=== PATIENT | female | born 1955 | race Caucasian/White ===

== ENCOUNTER 2019-12-30 09:30 | Inpatient (IN) ==
--- NOTE | 2019-12-29 11:14 | Anesthesiology Consultation ---
Date of Service December 29, 2019 Assessment & Plan (1) Encounter for pre-operative examination: Chart Review Chart Review: Acceptable Risk for Surgery and Patient NOT seen in Pre Admission Testing History Surgery Operation Date: 12/30/19 11:30 Proposed Procedures p Navigational Bronchoscopy with ICG Markings; - Francisco Lim MD, FACS s Robotic Right Video-Assisted Thoracoscopy with Right Upper Lobe Wedge Resection, Possible Right Upper Lobectomy, with Mediastinal Lymphadenectomy - Francisco Lim MD, FACS Height/Weight Height: 5 ft 2 in Weight: 51.71 kg Allergies Allergy/AdvReac Type Severity Reaction Status Date / Time azithromycin [From Zithromax] Allergy Unknown Hives Verified 12/21/19 14:11 cephalexin [From Keflex] Allergy Unknown DIARHEA Verified 12/21/19 14:11 penicillin G Allergy Unknown UNKN Verified 12/21/19 14:11 Sulfa (Sulfonamide Allergy Unknown UNKN Verified 12/21/19 14:11 Antibiotics) Medications Home Medications Medication Instructions Recorded Confirmed Last Taken cholecalciferol (vitamin D3) 50 2,000 units PO QDD 12/09/19 12/21/19 Unknown mcg (2,000 unit) tablet cyclobenzaprine 10 mg tablet 10 mg PO TID 12/09/19 12/21/19 Unknown diazepam 10 mg tablet 10 mg PO TID PRN 12/09/19 12/21/19 Unknown dicyclomine 10 mg capsule 10 mg PO BID 12/09/19 12/21/19 Unknown diphenoxylate-atropine 2.5 1 tab PO Q6H PRN 12/09/19 12/21/19 Unknown mg-0.025 mg tablet fluticasone propionate 50 1 sprays INTNAS DAILY PRN 12/09/19 12/21/19 Unknown mcg/actuation nasal spray,suspension hydrocodone 5 mg-acetaminophen 325 1 tab PO Q6H PRN 12/09/19 12/21/19 Unknown mg tablet multivitamin 1 tab PO QDD 12/09/19 12/21/19 Unknown pantoprazole 40 mg tablet,delayed 40 mg PO QDD 12/09/19 12/21/19 Unknown release sertraline 100 mg tablet 50 mg PO BID 12/09/19 12/21/19 Unknown topiramate 50 mg tablet 50 mg PO BID 12/09/19 12/21/19 Unknown hydrocodone-acetaminophen 1 tab PO BID PRN 12/21/19 12/21/19 Unknown Past Medical History Medical History Anxiety Chronic back pain GETS [facility] INJECTIONS - LAST INJECTION - WILL BE 12/25/2019- [facility] Depression Diverticulitis History of anemia Irritable bowel Lung cancer Past Family History Family History Mother Heart failure Diabetes Daughter Diabetes Past Surgical History Surgical History H/O: hysterectomy 1977 Hx of cardiac cath 3-4 YR AGO [facility]Per [facility], no cardiac cath done there. Hx of colonoscopy Hx of oral surgery JAW WIRING D/T FACIAL TRAUMA Social History Smoking Status: Current every day smoker Smoking cigarettes per day: 10-20 Do You Dip or Chew Tobacco: No Hx Alcohol Use: Yes Alcohol type: wine and hard liquor alcohol intake frequency: holidays/special occasions only Hx Substance Use: No Testing Laboratory Results 11/11/19 WBC: 9.5 H/H: 15.2/37.6 PLATELETS: 222 PT: 13.3 INR: 1.0 Electrocardiogram Date: 09/07/19 Findings: + NSR @ (77bpm) Other Testing Chest CT 12/22/19 IMPRESSION: 1. 1.8 x 1.5 x 1 cm irregular right upper lobe nodule, minimally increased in size since CT of September 08, 2019. This is highly suggestive of bronchogenic carcinoma. 2. No thoracic lymphadenopathy. 3. Mild emphysema. 4. Moderate coronary artery calcification.
[~2019-12-30 09:30] MED LIST: LR 15ML/HR IV SCH
[2019-12-30] MEDS ORDERED: MIDAZOLAM HCL 1 MG/ML 2ML VIAL ONE (10:06)
[2019-12-30] MEDS ORDERED: PHENYLEPHRINE HCL 10 MG/ML VIAL ONE (10:06)
[2019-12-30] MEDS ORDERED: SUCCINYLCHOLINE CHLORIDE 20 MG/ML 10 ML VIAL ONE (10:06)
[2019-12-30] MEDS ORDERED: NEOSTIGMINE METHYLSULFATE 5 MG/5 ML SYR ONE (10:06)
[2019-12-30] MEDS ORDERED: DEXAMETHASONE SOD INJ 4 MG/ML VIAL ONE (10:06)
[2019-12-30] MEDS ORDERED: ePHEDrine sulfate 50 MG/ML AMP ONE (10:06)
[2019-12-30] MEDS ORDERED: GLYCOPYRROLATE 0.2 MG/ML VIAL ONE (10:06)
[2019-12-30] MEDS ORDERED: PROPOFOL IV EMULSION 10 MG/ML 20 ML VIAL IV ONE ×2 (10:06→14:28)
[2019-12-30] MEDS ORDERED: fentaNYL citrate 100 MCG/2 ML VIAL ONE (10:06)
[2019-12-30] MEDS ORDERED: LIDOCAINE HCL 2% 2 ML VIAL/AMP(20MG/ML) INFIL ONE (10:06)
[2019-12-30] MEDS ORDERED: ONDANSETRON INJ 2 MG/ML 2 ML VIAL ONE (10:06)
--- NOTE | 2019-12-30 10:39 | History & Physical Bridge Note ---
Date of Service December 30, 2019 History & Physical Bridge Note I have examined the patient, reviewed the History & Physical and in the interval since the performance of the History & Physical I have noted the following changes of clinical significance: no changes noted
[2019-12-30] MEDS ORDERED: BUPIVACAINE LIPOSOME 1.3% 266 MG/20 ML VIAL ONE ×2 (10:51)
[2019-12-30] MEDS ORDERED: SODIUM CHLORIDE 0.9% PF 50 ML VIAL ONE (10:51)
[2019-12-30] MEDS ORDERED: BUPIVACAINE 0.5 % 5 MG/1 ML MPF 30ML VIAL ONE (10:51)
[2019-12-30 10:52] LABS: Calcium 9.2 mg/dl (8.5-10.1); Creatinine Clr Calc Pharmacy 37.6 ml/min; Est GFR (Non-African American) 48.4; Potassium 3.8 mmol/L (3.5-5.1)
[2019-12-30] MEDS ORDERED: MEPERIDINE HCL 25 MG/ML CARP IV PRN (10:58)
[2019-12-30] MEDS ORDERED: ATROPINE SULFATE 0.1 MG/ML 10ML SYR IV PRN (10:58)
[2019-12-30] MEDS ORDERED: HYDROmorphone INJ 1 MG/ML SYRINGE IV PRN (10:58)
[2019-12-30] MEDS ORDERED: ePHEDrine sulfate 50 MG/ML AMP IV PRN (10:58)
[2019-12-30] MEDS ORDERED: LABETALOL HCL IV 5 MG/ML 20ML IV PRN (10:58)
[2019-12-30] MEDS ORDERED: PHENYLEPHRINE 100MCG/ML 5ML SYR IV PRN (10:58)
[2019-12-30] MEDS ORDERED: fentaNYL citrate 100 MCG/2 ML VIAL IV PRN (10:58)
[2019-12-30] MEDS ORDERED: ONDANSETRON INJ 2 MG/ML 2 ML VIAL IV PRN ×2 (10:58→17:46)
[2019-12-30] MEDS: CLINDAMYCIN 600 MG/54 ML BAG IV SCH (11:30)
--- NOTE | 2019-12-30 12:06 | Fluoroscopy Report ---
FL chest 1V frontal CLINICAL HISTORY: GEMMA BRONCH WITH ICG MARKINGS COMPARISON STUDY: Chest CT December 22, 2019. FLUOROSCOPY TIME: 18 seconds. FLUOROSCOPIC IMAGES: 1 FINDINGS: Fluoroscopy was provided during navigational bronchoscopy for the right upper lobe lesion s hown on chest CT of December 22, 2019. IMPRESSION: Fluoroscopy provided for navigational bronchoscopy, as described above. ACT 112: Negative or not required by law. Electronically signed by: Dipak Leon M.D. 12/30/2019 12:05 PM
[2019-12-30] MEDS ORDERED: SURGICEL ABSORB HEMOSTAT 2IN X 14IN TOP ONE (12:58)
[2019-12-30] MEDS ORDERED: ROCURONIUM BROMIDE 10 MG/ML 5 ML VIAL ONE (14:15)
[2019-12-30] MEDS ORDERED: FLOSEAL HEMOSTATIC MATRIX 10ML TOP ONE (14:37)
[2019-12-30] MEDS ORDERED: METOCLOPRAMIDE HCL INJ 5 MG/ML 2 ML VIAL IV ONE (15:25)
--- NOTE | 2019-12-30 15:46 | XRay Report ---
XR chest 1V portable HISTORY: 64 years-old Female RUL postoperative changes of the right upper lung COMPARISON: Chest CT 12/22/2019 TECHNIQUE: Portable AP view of the chest FINDINGS: Cardiac silhouette is enlarged. Prominence of the right hilum and right paratracheal tissues with adj acent surgical suture material. A right-sided chest tube is noted, distal tip terminating adjacent to the right lung apex. There is a suspected tiny right apical pneumothorax. Trace pleural effusions. M ild left lung base opacities. No overt pulmonary edema. Bones appear grossly intact. IMPRESSION: 1. Postoperative changes of the right lung with right-sided chest tube distal tip terminating adjacen t to the right lung apex. 2. Suspected tiny right apical pneumothorax. 3. Trace pleural effusions. 4. Mild left lung base opacities suggest atelectasis. ACT 112: Negative or not required by law. The above report was generated using voice recognition software. It may contain grammatical, syntax o r spelling errors. Electronically signed by: Joshua Nicholson M.D. 12/30/2019 3:45 PM
--- NOTE | 2019-12-30 15:49 | Operative Report ---
PG Post Operative Report Pre & Post Diagnosis Operation Date: 12/30/19 11:30 Pre-Op Diagnosis: Right Upper Lobe Lung Nodule Post-Op Diagnosis: NSCLC Right Upper Lobe I identified the patient and participated in the time-out.: Yes Procedure Operation Date: 12/30/19 11:30 Actual Procedures p Navigational Bronchoscopy with ICG Markings;(Right) - Francisco Lim MD, FACS s Robotic Right Video-Assisted Thoracoscopy with Right Upper Lobe Wedge Resection, Right Upper Lobectomy, with Mediastinal Lymphadenectomy(Right) - Francisco Lim MD, FACS Surgeon Francisco Lim MD, FACS Cogeneration Technician Kirby REBOLLEDO Estimated Blood Loss 150 Findings Consistent with Post-Op Diagnosis Specimens Right upper lobe wedge resection, right upper lobe, multiple mediastinal and hilar lymph nodes Drains 24 Greek right chest tube Anesthesia Type General Complications none Disposition Accompanied Patient To Recovery: Yes Disposition: Recovery Room Description of Procedure This 64-year-old smoker was found to have a mass which was growing in her right upper lobe. She is worked up by Dr. Harry Hernandez and was determined to be an operative candidate. On 12/30/2019 patient brought the operating room and underwent uncomplicated electromagnetic navigational bronchoscopy. The patient was then turned and underwent a robot assisted thoracoscopic wedge resection of right upper lobe mass and then a robot-assisted thoracoscopic right upper lobectomy with mediastinal lymphadenectomy. She tolerated it well. She was extubated in the room and transported to the postanesthesia care unit in stable condition. Procedure: Patient was brought to the operating room on 12/30/2019 he was intubated uneventfully with a single-lumen endotracheal tube. Fiberoptic bronchoscope was placed the adapter. Phylactic antibiotics were given before inserting the bronchoscope. I could see there were no abnormalities noted in the airways although she did have some white thick sputum. Navigational probe was placed through the bronchoscope and we registered the airways on the [email or web address] system. We then went and were able to navigate our way out directly to the mass in the right upper lobe. We confirmed this with a radial ultrasound probe. I then injected 1 cc of indocyanine green dye into the mass. We then remove the bronchoscope. There was no bleeding. Patient's endotracheal tube was then switched over to a double-lumen tube and monitoring lines and tubes were placed. Patient was turned in the left lateral Q position and right chest was prepped and draped in usual sterile fashion. After appropriate timeout of been called a 5 mm port was placed just anterior to the midaxillary line at about the seventh interspace. Could be seen there were no adhesions. Carbon dioxide was insufflated. This port was changed over to a 12 mm camera port. 8 mm ports were placed in the same interspace anteriorly and posteriorly about 10 cm apart. Another 5 mm port was placed about 10 cm apart closer to the spine in 1 interspace below. Assistance port was placed just above the diaphragm between the camera port and the anterior port. The robot was then docked. Upon entering with the robotic scope firefly technology was used. I did not see an obvious indocyanine green dye however I thought I could feel a mass. We stapled beneath this and we saw the indocyanine green dye. We went down to this mass this is all for frozen section. While waiting for frozen section I took down the infrapulmonary ligament but I did not see a level 9 node. And took at a level 8 node. I took out a large packet of level 7 nodes and dissected out the bronchus intermedius and a #11 lymph node between the upper lobe bronchus and bronchus intermedius. Also identified post erior a sending A3 branch of the right pulmonary artery. The dissection was then continued superiorly and took had a very large packet of level 2 and level 4 lymph nodes. There were multiple level 4 nodes. I also dissected out the level 10 lymph nodes above the pulmonary artery. from the vein and the bronchus. Frozen section came back as a non-small cell lung carcinoma and probably a squamous cell. I was able to get a stapler around the stapled off the bronchus first. This opened up things quite nicely. I then went anterior and open up the pleura and it from the vein and divided the superior pulmonary vein just distal to its confluence with the middle lobe vein. This opened up the apical anterior branch quite nicely and I fired Endo ALEXANDRU stapler across this. I then fired an Endo ALEXANDRU stapler across the A3 branch. We then completed the fissures with several firings of the Endo ALEXANDRU stapler. No bleeding although she had some oozing from the bronchial stump area. Was actually around this and we did cauterize however there was still some oozing. After drying everything up and filling the chest with saline we could see there was no significant leak. And suctioned out all of these saline and placed FloSeal over all of the vessels and the bronchus. This worked very nicely. 24 Greek chest tube was then selected and placed to the anterior port and directed towards the apex and sutured in place with heavy silk suture. Prior to placing the chest tube we remove the lobe in an Endobag. We had opened up the language assistant's port in order to deliver this but it went very nicely. This was sent for frozen sections for the bronchial margins which were negative. We then closed this incision with 0 Vicryl to reapproximate the muscle tissues and then 4 Monocryl was used to close all of the skin incisions. Prior to the case, we mixed a total of 266 mg of Exparel and 20 cc of solution with 30 cc of 0.5% mepivacaine and 250 cc of normal saline for 300 cc total solution. We injected this into each of our port sites before making the incision. We then performed an intercostal block from the second to the 12th rib by injecting directly to the interspace under thoracoscopic guidance. Patient awakened easily from anesthesia. She was extubated in the room. She tolerated it very nicely with a very tiny air leak. I attest to the content of the Intraoperative Record and any orders documented therein. Any exceptions are noted below.
--- NOTE | 2019-12-30 16:25 | Anesthesiology Progress Note ---
Date of Service December 30, 2019 Anesthesia Post Procedure Vital Signs Vital Signs: Temp Pulse Pulse Resp BP BP Pulse Ox 12/30/19 16:10 65 15 101/72 100 12/30/19 16:00 66 15 132/67 100 12/30/19 15:50 67 14 143/61 H 100 12/30/19 15:40 66 15 146/87 H 100 12/30/19 15:30 35.6 C L 66 52 L 14 142/70 H 100 12/30/19 10:12 36.5 C 52 L 20 150/75 H 100 Pain Intensity Lower Back: Pain Intensity: 7 Transfer of Care Handoff Completed per policy Notes Mental Status: alert / awake / arousable and participated in evaluation Patient Amnestic to Procedure: Yes Nausea / Vomiting: adequately controlled Pain: adequately controlled Airway Patency, RR, SpO2: stable & adequate BP & HR: stable & adequate Hydration State: stable & adequate Anesthetic Complications: no major complications apparent and Pt Satisfied with anesthetic care
[2019-12-30] MEDS ORDERED: FLUTICASONE PROPIONATE NA SPR 16 GM BTL PRN (17:46)
[2019-12-30] MEDS ORDERED: MoRPHine SULFATE 2 MG/ML CARP IV PRN (17:46)
[2019-12-30] MEDS ORDERED: DIPHENOXYLATE/ATROPINE 2.5/0.025MG TAB PO PRN (17:46)
[2019-12-30] MEDS: D5W AND 1/2NSS 1,000 ML IV SCH (18:40)
[2019-12-30] MEDS: ACETAMINOPHEN 1,000 MG/100 ML VIAL IV SCH (18:40)
[2019-12-30] MEDS: METOCLOPRAMIDE HCL INJ 5 MG/ML 2 ML VIAL IV SCH (18:40)
[2019-12-30] MEDS: PANTOprazole 40 MG TAB PO SCH (18:41)
[2019-12-30] MEDS: MULTIVITAMIN TAB PO SCH (18:41)
[2019-12-30] MEDS: CYCLOBENZAPRINE HCL 10 MG TAB PO SCH (20:27)
[2019-12-30] MEDS: TOPIRAMATE 50 MG TAB PO SCH (20:28)
[2019-12-30] MEDS: DOCUSATE SODIUM 100 MG CAP PO SCH ×2 (20:28→20:33)
[2019-12-30] MEDS: DICYCLOMINE HCL 10 MG CAP PO SCH (20:28)
[2019-12-30] MEDS: SERTRALINE HCL 50 MG TABLET PO SCH (20:29)
[2019-12-30] MEDS: OXYCODONE HCL IR 5 MG TAB (IMMEDIATE RELEASE) PO PRN (21:47)
[2019-12-31] MEDS: ACETAMINOPHEN 1,000 MG/100 ML VIAL IV SCH ×2 (02:00→10:39)
[2019-12-31] MEDS: METOCLOPRAMIDE HCL INJ 5 MG/ML 2 ML VIAL IV SCH ×2 (02:00→10:39)
[2019-12-31] MEDS: D5W AND 1/2NSS 1,000 ML IV SCH (03:54)
[2019-12-31] MEDS: OXYCODONE HCL IR 5 MG TAB (IMMEDIATE RELEASE) PO PRN ×3 (05:41→16:16)
[2019-12-31 06:20] LABS: Basophils # (auto) 0.01 K/uL (0-0.2); Basophils % (auto) 0.1 %; Hematocrit (blood only) 35.6 % (37-47); Hemoglobin 11.6 g/dL (12.0-16.0); Immature Granulocytes # (auto) 0.02 K/uL (0.00-0.02); Immature Granulocytes % (auto) 0.2 %; Lymphocytes # (auto) 1.43 K/uL (1.2-3.4); Lymphocytes % (auto) 14.6 %; Mean Corpuscular Hemoglobin 30.8 pg (25-34); Mean Corpuscular Volume 94.4 fL (80-100); Mean Platelet Volume 9.6 fL (7.4-10.4); Monocytes # (auto) 0.49 K/uL (0.11-0.59); Neutrophils # (auto) 7.84 K/uL (1.4-6.5); Neutrophils % (auto) 80.1 %; Platelet Count 202 K/uL (130-400); RDW Standard Deviation 45.1 fL (36.4-46.3); Red Blood Count 3.77 M/uL (4.2-5.4); White Blood Count 9.79 K/uL (4.8-10.8)
[2019-12-31 06:29] LABS: Mean Corpuscular Hgb Conc 32.6 g/dL (32-36)
[2019-12-31] MEDS: CLINDAMYCIN 600 MG/54 ML BAG IV SCH (06:40)
[2019-12-31 06:44] LABS: BUN Creatinine Ratio 12.8 (10-20); Calcium 8.7 mg/dl (8.5-10.1); Creatinine Clr Calc Pharmacy 44.8 ml/min; Est GFR (African American) 69.3; Est GFR (Non-African American) 59.8; Potassium 4.2 mmol/L (3.5-5.1)
--- NOTE | 2019-12-31 06:57 | XRay Report ---
XR chest 1V portable CLINICAL HISTORY: 64 years-old Female presenting with RUL. TECHNIQUE: Portable upright AP view of the chest was obtained. COMPARISON: 12/30/2019. FINDINGS: Large bore right pleural drain remains positioned at the right apex. Limited associated soft tissue e mphysema along the inferior right lateral chest wall. Atherosclerosis of the aortic arch. Cardiac aubree houette normal in size. Prominence of the right hilum as on prior exam. Extensive suture margins proj ect over the right hilum. The right lung volume loss related to postsurgical change. Minimal opacity at the left costophrenic angle, slightly decreased from prior. No large effusion. Trace if any pneumo thorax at the right apex. Osseous structures normal. Upper abdomen normal. IMPRESSION: 1. Trace if any right apical pneumothorax is present. 2. Unchanged right pleural drain. 3. Postsurgical changes of the right lung with right hilar prominence. 4. Opacity at the left lung base slightly decreased from prior, possibly resolving atelectasis. ACT 112: Negative or not required by law. Electronically signed by: Andrea Hratley M.D. 12/31/2019 6:55 AM
[2019-12-31] MEDS: ENOXAPARIN INJ 40 MG/0.4 ML SYR SQ SCH (08:36)
[2019-12-31] MEDS: DOCUSATE SODIUM 100 MG CAP PO SCH (08:40)
[2019-12-31] MEDS: CYCLOBENZAPRINE HCL 10 MG TAB PO SCH ×3 (08:40→20:45)
[2019-12-31] MEDS: DICYCLOMINE HCL 10 MG CAP PO SCH ×2 (08:40→20:45)
[2019-12-31] MEDS: TOPIRAMATE 50 MG TAB PO SCH ×2 (08:41→20:45)
[2019-12-31] MEDS: SERTRALINE HCL 50 MG TABLET PO SCH ×2 (08:41→20:45)
[2019-12-31] MEDS: diazePAM 5 MG TABLET PO PRN ×2 (08:54→17:21)
[2019-12-31] MEDS ORDERED: Nursing to Pharmacy Communication ONE (08:59)
--- NOTE | 2019-12-31 09:21 | Progress Note ---
DATE: 12/31/2019 Ms. Mendez was seen today, 1 day status post a robot-assisted thoracoscopic right upper lobectomy for a squamous cell carcinoma. She has done remarkably well. She really does not have an air leak. She has drained just a little over 300 total from her chest tube, but very little overnight. Her x-ray shows no fluid, no pneumothorax and no infiltrates. She sounds great on exam. The patient is concerned about her pain meds. She is on oxycodone at home for her back. She does not appear to be having much in the way of pain though. At any rate, we are going to stop her IVs and have her ambulate and if things look good, I will discontinue her chest tube and let her go home tomorrow.
--- NOTE | 2019-12-31 10:43 | Anesthesiology Progress Note ---
Date of Service December 31, 2019 Anesthesia Post Procedure Vital Signs Vital Signs: Temp Pulse Pulse Resp BP Pulse Ox Pulse Ox 12/31/19 09:30 36.8 C 74 16 150/71 H 98 12/31/19 08:08 96 12/31/19 05:35 36.9 C 72 16 130/66 96 12/31/19 03:45 36.8 C 66 16 122/56 L 94 12/31/19 01:35 37.0 C 70 16 143/70 H 96 12/30/19 23:35 36.8 C 68 16 130/78 96 12/30/19 23:30 96 12/30/19 21:35 36.7 C 74 16 104/61 93 12/30/19 20:24 36.4 C L 75 18 112/69 96 12/30/19 19:35 36.4 C L 80 16 107/64 97 12/30/19 18:35 79 17 120/72 97 12/30/19 18:10 36.3 C L 17 110/69 100 12/30/19 17:35 36.4 C L 71 16 108/67 98 12/30/19 17:25 16 L 16 103/60 100 12/30/19 17:10 65 16 111/61 100 12/30/19 17:00 67 15 107/63 100 12/30/19 16:50 68 14 97/59 L 100 12/30/19 16:40 36.2 C L 66 12 112/63 100 12/30/19 16:30 67 12 107/64 100 12/30/19 16:20 67 14 116/82 100 12/30/19 16:10 65 15 101/72 100 12/30/19 16:00 66 15 132/67 100 12/30/19 15:50 67 14 143/61 H 100 12/30/19 15:40 66 15 146/87 H 100 12/30/19 15:30 35.6 C L 66 52 L 14 142/70 H 100 Pain Intensity Lower Back: Pain Intensity: 2 Notes Mental Status: alert / awake / arousable Patient Amnestic to Procedure: Yes Nausea / Vomiting: adequately controlled Pain: adequately controlled Airway Patency, RR, SpO2: stable & adequate BP & HR: stable & adequate Hydration State: stable & adequate Anesthetic Complications: no major complications apparent and Pt Satisfied with anesthetic care
[2019-12-31] MEDS ORDERED: CHOLECALCIFEROL 1,000 UNITS 25 MCG TAB PO SCH (16:30)
[2019-12-31] MEDS ORDERED: OXYCODONE/ACETAMINOPHEN 5mg/325mg TAB PO PRN (17:04)
[2019-12-31] MEDS: PANTOprazole 40 MG TAB PO SCH (17:25)
[2019-12-31] MEDS: MULTIVITAMIN TAB PO SCH (17:26)
[2019-12-31] MEDS ORDERED: HYDROCODONE/ACETAMINOPHEN 10/325 TAB PO PRN (17:46)
[2019-12-31] MEDS: MoRPHine SULFATE 2 MG/ML CARP IV PRN (21:58)
[2020-01-01] MEDS: MoRPHine SULFATE 2 MG/ML CARP IV PRN ×4 (01:45→10:09)
--- NOTE | 2020-01-01 07:38 | XRay Report ---
XR chest 1V portable HISTORY: Postop. lobectomy COMPARISON: Chest 12/31/2019. FINDINGS: Right hilar fullness remains unchanged consistent with postoperative change. Stable volume loss within the right hemithorax. Right chest tube terminates at the right lung apex. No definite pne umothorax. The left lung is clear. The heart is normal in size. IMPRESSION: No definite pneumothorax. Right-sided chest tube is in good position. ACT 112: Negative or not required by law. Results electronically sent 01/01/2020 7:36 AM to: Francisco Lim MD FACS Electronically signed by: Abilio Vidal M.D. 01/01/2020 7:36 AM
--- NOTE | 2020-01-01 07:45 | XRay Report ---
XR chest 1V portable CLINICAL HISTORY: chest tube removal COMPARISON STUDY: Chest radiograph January 01, 2020. FINDINGS: Postoperative findings within the right hemithorax are noted. The right chest tube has been removed. There is no pneumothorax. Trace right pleural effusion is noted. There is minimal left basi lar opacity appears no evidence for pulmonary edema. Cardiac size is normal. IMPRESSION: Interval removal of right-sided chest tube. No pneumothorax. ACT 112: Negative or not required by law. Results electronically sent 01/01/2020 7:44 AM to: Francisco Lim MD FACS Electronically signed by: Dipak Leon M.D. 01/01/2020 7:44 AM
[2020-01-01] MEDS: ENOXAPARIN INJ 40 MG/0.4 ML SYR SQ SCH (08:12)
[2020-01-01] MEDS: CYCLOBENZAPRINE HCL 10 MG TAB PO SCH (08:13)
[2020-01-01] MEDS: DICYCLOMINE HCL 10 MG CAP PO SCH (08:13)
[2020-01-01] MEDS: SERTRALINE HCL 50 MG TABLET PO SCH (08:13)
[2020-01-01] MEDS: TOPIRAMATE 50 MG TAB PO SCH (08:13)
--- NOTE | 2020-01-01 18:46 | Discharge Summary ---
DISCHARGE DIAGNOSES: Squamous cell carcinoma, right upper lobe. HOSPITAL COURSE: Ms. Mendez is a 64-year-old active smoker, who was found to have a mass which was growing in her right upper lobe. On 12/30/2019 patient was admitted electively and I performed a navigational bronchoscopy and injected this with ICG dye. We then turned her and did a robotic wedge resection and this turned out to be a squamous cell carcinoma. We performed an uncomplicated robot-assisted thoracoscopic right upper lobectomy with mediastinal lymphadenectomy. She did quite well with this. She did not have an air leak the following day. She had very little drainage. The patient is on narcotics. She was on [place] 7.5 twice a day for her back. I increased this to 3 times a day when she left. Her incisions were clean. We pulled her chest tube on the second postop day. Her x-ray looked quite good. The final pathology is not back from a lymph node standpoint. It does appear to be an early stage squamous cell carcinoma. The patient was discharged home on postop day #2. I will see her back on 01/11/2020 to go over all of the final pathology. In addition, she was given discharge instructions.
== END 2020-01-01 13:24 | disposition home or self-care (01) | DRG 165 ==
LOC: ASU 09:30 → 3W 15:11